=== PATIENT | male | born 1955 | race Caucasian/White ===

== ENCOUNTER → 2020-11-22 | Outpatient (CLI) | payer MEDICARE, OTHER ==
[~2020-11-22] MED LIST: ALDACTONE25 MG PO; ASPIRIN81 M1 PO; ATENOLOL25 MG PO; ATORVASTATIN CA20 MG PO; CIALIS10 MG PO; DIATRIZOATE MEGL/DIATRIZOA SOD 30 ML BTL PO ONE; DIGOXIN250 MCG PO; GLEEVEC400 MG PO; IOPAMIDOL 370 MG/ML 200 ML INFUS..BTL INJ ONE; MULTIPLE VITAM1 EAC1; PLAVIX75 MG PO; SODIUM CHLORIDE 0.9% 50ML 50 ML ONE; TRICOR145 MG PO; [UNRECOGNIZED DRUG - OTHER]
[2020-11-22 12:21] LABS: CREATININE, SERUM 1.34 mg/dL (0.72-1.25)
== END ==
LOC: CT 11:47
PROVIDERS: ATTEND Family Medicine
DX: R10.9 Unspecified abdominal pain (principal)
CPT/HCPCS: 36415; 74177; 82565; 84520; Q9967

== ENCOUNTER → 2022-05-18 | Outpatient (CLI) | payer MEDICARE, OTHER ==
[~2022-05-18] MED LIST changes: -DIATRIZOATE MEGL/DIATRIZOA SOD 30 ML BTL PO ONE; -IOPAMIDOL 370 MG/ML 200 ML INFUS..BTL INJ ONE; -SODIUM CHLORIDE 0.9% 50ML 50 ML ONE
== END ==
LOC: CT 15:14
PROVIDERS: ATTEND Family Medicine
DX: R10.9 Unspecified abdominal pain (principal); K76.0 Fatty (change of) liver, not elsewhere classified; Z87.442 Personal history of urinary calculi
CPT/HCPCS: 74176